=== PATIENT | male | born 1935 ===

== ENCOUNTER 2018-08-07 08:42 | Day surgery (SDC) | payer MEDICARE, MEDICAID ==
[2018-07-30 16:25] VITALS: BMI 25.9
[2018-08-07] MEDS ORDERED: Lidocaine PF 2% (5 ml) Inj (For Cardiac Arrhy) ONE (09:43)
[2018-08-07] MEDS ORDERED: Verapamil 0 ML ONE (09:43)
[2018-08-07] MEDS ORDERED: Iohexol 350mgl/ml 50 ML ONE (09:43)
[2018-08-07 09:44] LABS: BASO # 0.03 K/mm3 (0.0-2.0); BASO % 0.7 % (0.0-3.0); EOS # 0.1 (0.0-0.7); EOS % 3.3 % (1.5-5.0); HEMOGLOBIN 9.9 g/dL (14.0-18.0); LYMPH # 0.9 (1.2-3.4); LYMPH % 20.6 % (22.0-35.0); MEAN CELL VOLUME 79.2 fl (80.0-105.0); MEAN CORPUSCULAR HEMOGLOBIN 25.1 pg (25.0-35.0); MEAN CORPUSCULAR HGB CONC 31.7 g/dl (31.0-37.0); MEAN PLATELET VOLUME 9.8 fl (7.0-11.0); MONO # 0.3 (0.1-0.6); MONO % 7.8 % (1.0-6.0); RBC 3.94 10^6/uL (3.5-6.1); RED CELL DISTRIBUTION WIDTH 15.7 % (11.5-14.5); WHITE BLOOD COUNT 4.2 10^3/uL (4.5-11.0)
[2018-08-07] MEDS ORDERED: Iodixanol 320 MG/ML 200 ML BOTTLE IV ONE (09:44)
[2018-08-07] MEDS ORDERED: Nitroglycerin 50mg in D5W 0 MG/0 ML BOTTLE IV ONE (09:44)
[2018-08-07 09:45] LABS: BLOOD UREA NITROGEN 17 mg/dL (7-21); CALCIUM 9.6 mg/dL (8.4-10.5); GFR NON-AFRICAN AMERICAN > 60; HDL CHOLESTEROL 55 mg/dL (29-60)
[2018-08-07 09:50] LABS: INR 1.05; PARTIAL THROMBOPLASTIN TIME 49.3 Seconds (26.9-38.3); PROTHROMBIN TIME 11.9 SECONDS (9.4-12.5)
[2018-08-07 09:55] LABS: LDL CHOLESTEROL 73 mg/dL (0-129)
[2018-08-07] MEDS ORDERED: Midazolam 2 MG/2 ML VIAL ONE (10:11)
[2018-08-07 11:49] VITALS: RESP 18; TEMP 98; O2SAT 98
--- NOTE | 2018-08-07 13:09 | CARD ---
APPROVED REPORT Date of service: 08/07/2018 EKG Measurement Heart [id number] <Conclusion> Normal sinus rhythm Normal ECG
--- NOTE | 2018-08-07 14:22 | CARDCATH ---
PROCEDURE DATE: 08/07/2018 INDICATIONS: Mr. Monique is an 83-year-old male, who was admitted to [facility] with an episode of syncope. 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 PROCEDURE PERFORMED: Complete heart catheterization with right and left heart catheterization performed via right femoral arterial and venous approach. A 6-[place] left femoral arterial access right femoral venous access, left heart catheterization with selective left and right coronary angiogram, left ventriculogram, simultaneous LV and AO pressure gradients. HEMODYNAMIC FINDINGS OF THE RIGHT HEART CATHETERIZATION RA pressures 13/11/10, RA mean of 10 mmHg, RV pressures 27/1 with RVEDP of 8. PA pressures 26/10 with a mean of 18. Pulmonary capillary wedge pressure mean of 14. The patient's peak to peak transaortic gradients were 14 mmHg. Using the thermodilution method, cardiac output was calculated to be 4.4 liters and cardiac index of 2.47. Aortic valve area was calculated to be more than 3 cm2. Left heart cath findings, left main is a large-sized vessel that bifurcates into left anterior descending and left circumflex coronary artery. Left main is free of any obstructive disease. Left anterior descending artery is a large size vessel gives off two medium-sized diagonal branches with mid left anterior descending artery nonobstructive 55% stenosis. Left circumflex runs in the AV groove, large-sized vessel that gives off medium size obtuse marginal branch, left circumflex and obtuse marginal are free of any obstructive disease. RCA is a large-sized vessel free of any obstructive disease, right dominant circulation. Left ventricular ejection fraction of 55%. IMPRESSION: Mild aortic stenosis, mild nonobstructive coronary artery disease, normal filling pressures and normal pulmonary pressures. RECOMMENDATIONS: Continue aggressive medical management and risk factor modification. Wade Bello MD
[2018-08-07 14:25] VITALS: BP 145/65; PULSE 63
[2018-08-07] MEDS ORDERED: Bacitracin 500 Units/gm Oint Foilpak UD ONE (15:36)
== END 2018-08-07 15:00 | disposition home or self-care (01) ==
LOC: CATH 08:42
PROVIDERS: ATTEND Internal Medicine Interventional Cardiology
DX: I35.0 Nonrheumatic aortic (valve) stenosis (principal); I25.10 Atherosclerotic heart disease of native coronary artery without angina pectoris
CPT/HCPCS: 36415; 80048; 80061; 85025; 85610; 85730; 86850; 86900; 93005; 93460; 99152; 99153; C1760; C1769 ×2; C1894 ×2; J1644; J2250; J3010; J7040; Q9966; Q9967